=== PATIENT | female | born 1975 | race Caucasian/White ===

== ENCOUNTER → 2016-11-25 | Outpatient (CLI) | payer MEDICARE, OTHER ==
[~2016-11-25] MED LIST: ALBUTEROL17 GM; ALPRAZOLAM PO; AMITRYPTYLINE PO; ANTIVERT PO; BACTRIM DS TABL1 TAB PO; BACTRIM PO; BACTROBAN15 GM TOP; BENTYL20 MG PO; BENZONATATE; CELEXA PO; CIPRO PO; CYMBALTA PO; DEPAKOTE PO; DESYREL50 MG DOB; FLONASE 0.05% N16 G1 IN; IMITREX; KLONOPIN PO; LAMICTAL PO; LAMICTAL100 MG PO; LITHIUM PO; MACRODANTIN50 MG; NAPROSYN-EC500 MG PO; NAPROSYN375 MG PO; NAPROXEN PO; NO MEDICATIONS; PYRIDIUM100 MG; SAPHRIS10 MG SL; SKELAXIN PO; TRAZODONE PO; TRILEPTAL; WELLBUTRIN PO; ZITHROMAX PO; ZOFRAN PO; ZOLOFT PO; [UNRECOGNIZED DRUG - OTHER] PO; [UNRECOGNIZED DRUG - OTHER] PO
--- NOTE | ~2016-11-25 | CT57 ---
[facility]. [facility] A Service of [facility] RADIOLOGY TEXT RESULTS PATIENT: CAT IZAGUIRRE LOCATION: [facility] : [birth year] UNIT #: [id number] AGE: [address]: Micah Monk [employer] SEX: F ORDER DR: [id number] [address] [address] [id number] O MR#: [id number] Acc #: [id number] NAME: CAT IZAGUIRRE : 1975 SEX: F STUDY DATE/TIME: 11/25/2016 13:56 UNIT: [facility] ROOM: STUDY DESCRIPTION: CT Chest Wo Cont Attending Physician: Micah Monk A.P.R.N. Referring Physician: Micah Monk A.P.R.N. Ordering Physician: Micah Monk A.P.R.N. Primary Care Physician: Hugo Mendez M.D. MEDICAL IMAGING REPORT This report is preliminary unless electronic signature is present. EXAM CT of the chest without contrast INDICATIONS 41-year-old female with history of followup pulmonary nodule. TECHNIQUE CT of the chest was performed without contrast. Coronal and sagittal reformatted images were obtained. This CT exam was performed with one or more of the following radiation dose reduction techniques: automatic control, adjustment of mA and/or kV according to patient size, and iterative reconstruction. COMPARISON Comparison with 11/01/2015 and 11/23/2014. FINDINGS Right upper lobe calcified granuloma. There is also a calcified granuloma in the left lower lobe. No new nodule or suspicious nodule. Calcified hilar lymph nodes on the right. No pleural effusion. Limited imaging in the upper abdomen is unremarkable. The bone windows are unremarkable. IMPRESSION Stable calcified granulomas. No suspicious pulmonary nodule Dictated by... Rl Ruelas M.D. THIS IS AN ELECTRONICALLY VERIFIED REPORT Rl Ruelas M.D. at 11/25/2016 4:29 PM ARS/rnr [facility] A Service of [facility] RADIOLOGY TEXT RESULTS PATIENT: CAT IZAGUIRRE LOCATION: [facility] #: [id number] : [birth year] UNIT #: [id number] AGE: [address]: Micah Monk APRN SEX: F ORDER DR: TD: 11/25/2016 14:58 JOB #: [id number] MEDICAL IMAGING REPORT Page 1 of 1
== END | disposition home or self-care (01) ==
LOC: SCT 13:45
DX: R91.1 Solitary pulmonary nodule (principal); J84.10 Pulmonary fibrosis, unspecified
CPT/HCPCS: 71250

== ENCOUNTER 2016-11-26 21:44 | Emergency (ER) | payer OTHER ==
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
== END 2016-11-27 00:03 | disposition home or self-care (01) ==
LOC: SED 21:44
DX: S23.3XXA Sprain of ligaments of thoracic spine, initial encounter (principal); S00.03XA Contusion of scalp, initial encounter; S70.01XA Contusion of right hip, initial encounter; F41.9 Anxiety disorder, unspecified; F43.10 Post-traumatic stress disorder, unspecified; F31.9 Bipolar disorder, unspecified; Z86.19 Personal history of other infectious and parasitic diseases; V49.50XA Passenger injured in collision with unspecified motor vehicles in traffic accident, initial encounter; Y92.410 Unspecified street and highway as the place of occurrence of the external cause
CPT/HCPCS: 72072; 99283

== ENCOUNTER 2016-12-08 14:13 | Emergency (ER) | payer MEDICARE ==
[2016-12-08 14:28] LABS: URINE SOURCE CLEAN CATCH
[2016-12-08 14:30] LABS: URINE APPEARANCE CLOUDY; URINE BILIRUBIN NEG (NEG); URINE BLOOD 2+ (NEG); URINE COLOR YELLOW; URINE GLUCOSE NEG (NORM); URINE KETONE NEG (NEG); URINE LEUKOCYTE ESTERASE 2+ (NEG); URINE NITRATE NEG (NEG); URINE PH 5.5 (5-8); URINE PROTEIN 2+ (NEG); URINE SPECIFIC GRAVITY >=1.030 (1.003-1.035)
[2016-12-08 14:46] LABS: MICRO INDICATED? YES
[2016-12-08 14:47] LABS: CULTURE INDICATED? YES; URINE BACTERIA 1+ (NEG); URINE RBC 25-50 /[HPF] (0-2); URINE SQUAMOUS EPITHELIAL CELL FEW /[HPF]; URINE WBC 25-50 /[HPF] (0-5)
[2016-12-10 02:35] LABS: CHLAMYDIA TRACH Not Detected (Not Detected); N GONOR Not Detected (Not Detected)
== END 2016-12-08 15:23 | disposition home or self-care (01) ==
LOC: SED 14:13
PROVIDERS: Nurse Practitioner
DX: N39.0 Urinary tract infection, site not specified (principal); A59.9 Trichomoniasis, unspecified; F31.9 Bipolar disorder, unspecified; G43.909 Migraine, unspecified, not intractable, without status migrainosus; F43.10 Post-traumatic stress disorder, unspecified; Z86.19 Personal history of other infectious and parasitic diseases; Z90.710 Acquired absence of both cervix and uterus
CPT/HCPCS: 81003; 87086; 87088; 87210; 87491; 87591; 87808; 87905; 99284

== ENCOUNTER 2016-12-08 22:21 | Emergency (ER) | payer MEDICARE ==
--- NOTE | ~2016-12-08 | CR72 ---
[facility]. [facility] A Service of [facility] & [facility] RADIOLOGY TEXT RESULTS PATIENT: CAT IZAGUIRRE LOCATION: SED : 77 UNIT #: [id number] AGE: [address]: Rene Blandon MD SEX: F ORDER DR: [id number] [place] [id number] E MR#: [id number] Acc #: [id number] NAME: CAT IZAGUIRRE. : 1975 SEX: F STUDY DATE/TIME: 12/08/2016 22:24 UNIT: SED ROOM: STUDY DESCRIPTION: CR Chest Single View Portable Attending Physician: Rene Blandon M.D. Ordering Physician: Rene Blandon M.D. Primary Care Physician: Hugo Mendez M.D. MEDICAL IMAGING REPORT This report is preliminary unless electronic signature is present. EXAM Portable chest, 12/09/2023 INDICATION Chest pain and shortness of air today. FINDINGS AP portable chest is compared with 08/01/2014. Comparison also made with chest CT from 11/25/2016. Cardiac and mediastinal contours are normal. Nodular density in the right midlung was shown by CT to represent a calcified granuloma. The lungs are otherwise clear. No pneumothorax. IMPRESSION No active disease. Dictated by... Hugo Redding Jr., M.D. THIS IS AN ELECTRONICALLY VERIFIED REPORT Hugo Redding Jr., M.D. at 12/09/2016 9:23 PM THERESA/diego TD: 12/09/2016 08:49 JOB #: [id number] MEDICAL IMAGING REPORT Page 1 of 1
--- NOTE | ~2016-12-08 | EKG ---
PATIENT: CAT IZAGUIRRE UNIT #: [id number] Ventricular Rate: 100 BPM Atrial Rate: 468 BPM QRS Duration: 78 ms Q-T Interval: 338 ms QTC Calculation(Bezet): 436 ms Calculated R [place]: 64 degrees Calculated T [place]: 50 degrees Diagnosis Line: Atrial fibrillation Diagnosis Line: Abnormal ECG Diagnosis Line: When compared with ECG of 26-MAY-2014 12:38, Diagnosis Line: Atrial fibrillation has replaced Sinus rhythm Diagnosis Line: Confirmed by SALUD ALDRICH MD ([id number]) on 12/09/2016 Diagnosis Line: 8:04:42 PM INTERPRETING MD: ELINOR TEJEDA
[2016-12-08 23:10] LABS: BASOPHIL% 0.2 % (0-2.5); EOSINOPHIL% 0.3 % (0.0-7.0); HEMATOCRIT 41.1 % (35.0-45.0); HEMOGLOBIN 13.9 gm/dL (12.0-16.0); LYMPHOCYTE# 1.1 X10e3 (1.0-3.5); LYMPHOCYTE% 10.8 % (17.0-45.0); MEAN CELL VOLUME 88.6 FL (83-96); MEAN CORPUSCULAR HGB CONC 33.9 g/dL (30-36); MEAN PLATELET VOLUME 9.6 FL (6.5-11.5); MONOCYTE# 0.4 X10e3 (0-1.0); MONOCYTE% 4.2 % (3.0-12.0); NEUTROPHIL# 8.3 X10e3 (1.5-7.1); NEUTROPHIL% 84.5 % (40-75); PLATELET COUNT 315 X10e3 (140-420); RED BLOOD COUNT 4.63 X10e (3.90-5.30); WHITE BLOOD COUNT 9.9 X10e3 (4.0-10.5)
[2016-12-08 23:11] LABS: DIFF IND NO
[2016-12-08 23:19] LABS: INR 1.2; PROTHROMBIN TIME (PATIENT) 13.5 SECONDS (9.5-12.4)
[2016-12-08 23:24] LABS: ALBUMIN SERUM 4.6 g/dL (3.5-5.0); BILIRUBIN, DIRECT 0.1 mg/dL (0.0-0.2); BILIRUBIN,INDIRECT 0.2 mg/dL (0.0-0.9); BILIRUBIN,TOTAL 0.3 mg/dL (0.2-2.0); BUN/CREATININE RATIO 12.5; CALCIUM SERUM 9.2 mg/dL (8.4-10.2); CREATININE SERUM 0.8 mg/dL (0.6-1.4); GLOM FILT RATE Estimated 92.3 mL/min (>60); MAGNESIUM 2.1 mg/dL (1.6-3.0); POTASSIUM 3.5 mmol/L (3.5-5.1); PROTEIN TOTAL SERUM 8.1 g/dL (6.0-8.3)
[2016-12-08 23:26] LABS: PARTIAL THROMBOPLASTIN TIME 29.4 SECONDS (25.6-38.1)
[2016-12-08 23:28] LABS: POC - CKMB <1.0 ng/mL (0.0-7.9); POC - TROPONIN <0.05 ng/mL (<=0.05)
[2016-12-08 23:44] LABS: BARBITURATES NEG (NEG); TRICYCLIC ANTIDEPRESSANTS NEG (NEG); U METHADONE NEG (NEG)
== END 2016-12-09 01:00 | disposition home or self-care (01) ==
LOC: SED 22:21
PROVIDERS: Emergency Medicine
DX: I48.91 Unspecified atrial fibrillation (principal); R11.2 Nausea with vomiting, unspecified; F31.9 Bipolar disorder, unspecified; Z87.442 Personal history of urinary calculi; Z88.8 Allergy status to other drugs, medicaments and biological substances; Z79.899 Other long term (current) drug therapy
CPT/HCPCS: 36415; 71010; 80048; 80076; 80307; 82553; 83735; 84443; 84484; 85025; 85610; 85730; 93005; 96374; 96375; 99284; J2405